=== PATIENT | male | born 1940 | race Two or more races ===

== ENCOUNTER 2017-09-29 10:40 | Inpatient (IN) | payer OTHER ==
[~2017-09-29] VITALS: Ht 172.7 cm; Wt 48.1 kg
[2017-09-29 10:51] VITALS: Ht 172.7 cm; Wt 48.1 kg
[2017-09-29 11:21] LABS: BASOPHIL % 0.3 % (0-2); PLATELET COUNT 298 x10^3mcL (130-400)
[2017-09-29 11:35] LABS: ALBUMIN 2.7 g/dL (3.4-5.0); ALKALINE PHOSPHATASE 44 U/L (46-116); ALT/SGPT 18 U/L (16-63); AST/SGOT 18 U/L (15-37); BILIRUBIN TOTAL 0.16 mg/dL (0.20-1.00); CALCIUM 8.7 mg/dL (8.5-10.1); CARBON DIOXIDE 27.5 mmol/L (21-32); CHLORIDE SERUM 108 mmol/L (98-107); CREATININE SERUM 1.1 mg/dL (0.7-1.3); GLUCOSE SERUM 106 mg/dL (74-106); POTASSIUM SERUM 4.2 mmol/L (3.5-5.1); SODIUM SERUM 138 mmol/L (136-145)
[2017-09-29] MEDS ORDERED: NORCO1 TA2 (12:17)
[2017-09-29] MEDS ORDERED: IBUPROFEN400 MG (12:17)
[2017-09-29 12:57] LABS: CHOLESTEROL/HDL RATIO 3.2; MAGNESIUM 1.7 mg/dL (1.8-2.4); PHOSPHOROUS 3.9 mg/dL (2.5-4.9)
[2017-09-29 13:06] LABS: T3 TOTAL 0.92 ng/mL
[2017-09-29 13:19] LABS: microscopic required? YES; urine erythrocyte TRACE (NEGATIVE)
[2017-09-29 13:23] LABS: FREE T4 0.89 ng/dL (0.76-1.46); T4(THYROXINE) 6.2 ug/dL (4.7-13.3)
[2017-09-29 13:45] LABS: AMPHETAMINE QUAL UR NONE DETECTED (See below)
[2017-09-29 14:46] VITALS: BP 118/61
[2017-09-29 21:03] VITALS: BP 104/53
[2017-09-29 21:35] LABS: IRON 71 ug/dL (65-170)
[2017-09-29 21:37] LABS: TOTAL IRON BINDING CAPACITY 223 ug/dL (250-450)
[2017-09-29 21:42] LABS: RED BLOOD CELLS 2.36 M/mm3 (4.52-5.90)
[2017-09-30] VITALS (8 sets, daily range): BP systolic 99–134; BP diastolic 56–70
[2017-09-30 06:03] LABS: CALCIUM 7.3 mg/dL (8.5-10.1); CARBON DIOXIDE 24.5 mmol/L (21-32); CHLORIDE SERUM 112 mmol/L (98-107); CREATININE SERUM 0.8 mg/dL (0.7-1.3); GLUCOSE SERUM 100 mg/dL (74-106); MAGNESIUM 1.6 mg/dL (1.8-2.4); PHOSPHOROUS 2.8 mg/dL (2.5-4.9); POTASSIUM SERUM 3.9 mmol/L (3.5-5.1); SODIUM SERUM 145 mmol/L (136-145)
[2017-09-30 06:06] LABS: BASOPHIL % 0.3 % (0-2); PLATELET COUNT 253 x10^3mcL (130-400); RED CELL DISTRIBUTION WIDTH 13.3 % (11.5-14.5)
[2017-09-30 06:12] LABS: rbc morphology (normal/abnorm) NORMAL (NORMAL)
[2017-09-30 09:28] LABS: BASOPHIL % 0.3 % (0-2); PLATELET COUNT 254 x10^3mcL (130-400); RED CELL DISTRIBUTION WIDTH 13.2 % (11.5-14.5)
[2017-09-30 10:28] LABS: rbc morphology (normal/abnorm) NORMAL (NORMAL)
[2017-09-30 15:13] LABS: CALCIUM 7.4 mg/dL (8.5-10.1); CARBON DIOXIDE 23.5 mmol/L (21-32); CHLORIDE SERUM 113 mmol/L (98-107); CREATININE SERUM 0.8 mg/dL (0.7-1.3); GLUCOSE SERUM 91 mg/dL (74-106); POTASSIUM SERUM 3.1 mmol/L (3.5-5.1); SODIUM SERUM 144 mmol/L (136-145)
[2017-09-30 19:02] LABS: BASOPHIL % 0.4 % (0-2); PLATELET COUNT 237 x10^3mcL (130-400)
[2017-09-30 19:03] LABS: RED CELL DISTRIBUTION WIDTH 15.6 % (11.5-14.5)
[2017-09-30 19:15] LABS: CALCIUM 7.6 mg/dL (8.5-10.1); CARBON DIOXIDE 25.3 mmol/L (21-32); CHLORIDE SERUM 111 mmol/L (98-107); CREATININE SERUM 0.8 mg/dL (0.7-1.3); GLUCOSE SERUM 110 mg/dL (74-106); MAGNESIUM 1.6 mg/dL (1.8-2.4); SODIUM SERUM 144 mmol/L (136-145)
[2017-09-30 19:21] LABS: POTASSIUM SERUM 2.9 mmol/L (3.5-5.1)
[2017-10-01 05:35] VITALS: BP 114/62
[2017-10-01 07:31] LABS: BASOPHIL % 0.4 % (0-2); PLATELET COUNT 282 x10^3mcL (130-400)
[2017-10-01 07:33] LABS: RED CELL DISTRIBUTION WIDTH 16.1 % (11.5-14.5)
[2017-10-01 07:38] LABS: CALCIUM 7.6 mg/dL (8.5-10.1); CARBON DIOXIDE 23.8 mmol/L (21-32); CHLORIDE SERUM 112 mmol/L (98-107); CREATININE SERUM 0.8 mg/dL (0.7-1.3); GLUCOSE SERUM 95 mg/dL (74-106); MAGNESIUM 1.8 mg/dL (1.8-2.4); PHOSPHOROUS 1.3 mg/dL (2.5-4.9); POTASSIUM SERUM 3.7 mmol/L (3.5-5.1); SODIUM SERUM 144 mmol/L (136-145)
[2017-10-01 10:33] VITALS: BP 140/69
[2017-10-01 13:44] VITALS: BP 136/58
[2017-10-01] MEDS ORDERED: FER300 PO (16:12)
[2017-10-01] MEDS ORDERED: PRI20 PO (16:16)
[2017-10-01 16:41] VITALS: BP 136/58
[2017-10-01] MEDS ORDERED: FINASTERIDE5 M1 PO (17:19)
[2017-10-01] MEDS ORDERED: FLOMAX0.4 MG PO (17:19)
[2017-10-01 17:55] VITALS: BP 132/67
[2017-10-01 20:32] VITALS: BP 120/56
== END 2017-10-01 22:21 | disposition home or self-care (01) | DRG 241 ==
LOC: ED 10:40 → DU 12:14
PROVIDERS: Emergency Medicine; Family Medicine; Internal Medicine Gastroenterology
PROC: 30233N1 Transfusion of Nonautologous Red Blood Cells into Peripheral Vein, Percutaneous Approach (ICD-10-PCS; principal; 2017-10-01 08:45)
PROC: 0DB68ZX Excision of Stomach, Via Natural or Artificial Opening Endoscopic, Diagnostic (ICD-10-PCS; 2017-10-01 08:45)
PROC: 0DJD8ZZ Inspection of Lower Intestinal Tract, Via Natural or Artificial Opening Endoscopic (ICD-10-PCS; 2017-10-01 08:45)
DX: K25.4 Chronic or unspecified gastric ulcer with hemorrhage (principal); N17.0 Acute kidney failure with tubular necrosis; E43 Unspecified severe protein-calorie malnutrition; E83.51 Hypocalcemia; E83.42 Hypomagnesemia; D50.0 Iron deficiency anemia secondary to blood loss (chronic); F17.210 Nicotine dependence, cigarettes, uncomplicated; N13.30 Unspecified hydronephrosis; E03.9 Hypothyroidism, unspecified; J44.9 Chronic obstructive pulmonary disease, unspecified; M81.0 Age-related osteoporosis without current pathological fracture; Z68.23 Body mass index [BMI] 23.0-23.9, adult
CPT/HCPCS: 43235; 45378; 83880; 84439; J1200; J1610; J2250; J2310; J3010; J3480; J3490; J7030; J7050; P9016; Q0163